=== PATIENT | male | born 1975 | race Caucasian/White ===

== ENCOUNTER 2018-04-08 16:13 | Emergency (ER) | payer OTHER ==
[~2018-04-08] VITALS: Ht 180.3 cm; Wt 77.3 kg
[2018-04-08 16:18] VITALS: BP 147/100
== END 2018-04-08 19:27 | disposition left against medical advice (07) ==
LOC: ER 16:14
DX: R07.9 Chest pain, unspecified (principal); J45.909 Unspecified asthma, uncomplicated; Z53.21 Procedure and treatment not carried out due to patient leaving prior to being seen by health care provider
CPT/HCPCS: 93005; 99281

== ENCOUNTER 2019-06-28 01:30 | Emergency (ER) | payer OTHER ==
[~2019-06-28] VITALS: Ht 177.8 cm; Wt 75.0 kg
[2019-06-28] MEDS ORDERED: dexamethasone sod phosphate 10mg/ml inj IV STA (01:36)
[2019-06-28] MEDS ORDERED: magnesium 2GM in 50ml NS 50 ML IV STA (01:36)
[2019-06-28] MEDS ORDERED: terbutaline 1 mg/ml inj SQ STA (01:36)
[2019-06-28] MEDS ORDERED: normal saline 1000ML IV soln IVB ONE (01:40)
--- NOTE | 2019-06-28 01:55 | NUR ---
RT placed pt on bipap
[2019-06-28 02:06] LABS: BASOPHILS # (AUTO) 0.1 X10'3 (0-0.2); BASOPHILS % (AUTO) 0.8 % (0-1); EOSINOPHILS # (AUTO) 0.9 X10'3 (0-0.9); EOSINOPHILS % (AUTO) 7.6 % (0-6); HEMATOCRIT 45.1 % (42.0-52.0); HEMOGLOBIN 15.4 g/dl (14.0-17.9); LYMPHOCYTES % (AUTO) 25.4 % (21-51); MEAN CORPUSCULAR HEMOGLOBIN 31.6 PG (27.0-31.0); MEAN CORPUSCULAR VOLUME 92.7 FL (78-98); MEAN PLATELET VOLUME 6.4 FL (7.4-10.4); MONOCYTES % (AUTO) 8.7 % (2-12); NEUTROPHILS # (AUTO) 6.9 X10'3 (1.8-7.7); NEUTROPHILS % (AUTO) 57.5 % (42-75); PLATELET COUNT 364 X10'3 (140-440); RED BLOOD COUNT 4.87 X10'6 (4.70-6.10); RED CELL DISTRIBUTION WIDTH 13.2 % (11.5-14.5)
[2019-06-28] MEDS ORDERED: ALBU18HF2 PO (02:06)
[2019-06-28] MEDS ORDERED: FLUT1DIS15 INH (02:06)
[2019-06-28 02:29] LABS: ALANINE AMINOTRANSFERASE 19 U/L (12-78); ALBUMIN 3.4 G/DL (3.4-5.0); ALBUMIN/GLOBULIN RATIO 0.9 (1.1-1.5); ALKALINE PHOSPHATASE 101 IU/L (46-116); ANION GAP 7 (8-16); ASPARTATE AMINO TRANSFERASE 32 U/L (10-37); BILIRUBIN,TOTAL 0.2 MG/DL (0.1-1.0); BLOOD UREA NITROGEN 14 MG/DL (7-18); BUN/CREATININE RATIO 14.7 (5.4-32.0); CALCIUM 8.6 MG/DL (8.5-10.1); CHLORIDE 103 MMOL/L (99-107); CREATININE 0.95 MG/DL (0.60-1.10); GLUCOSE 155 MG/DL (70-104); POTASSIUM 3.6 MMOL/L (3.5-5.1); SODIUM 138 MMOL/L (135-145); TOTAL CARBON DIOXIDE 27.7 MMOL/L (24-32); TOTAL PROTEIN 7.3 G/DL (6.4-8.2); eGFR 86 ML/MIN
[2019-06-28] MEDS ORDERED: albuterol 2.5 MG/3 ML nebule CONTNEB PRN (04:05)
[2019-06-28 04:45] LABS: ABG BASE EXCESS -2.3 mmol/L (-2.0-3.0); ABG HCO3 22.9 mmol/L (22.0-26.0); ABG OXYGEN SATURATION 95.3 % (95-98); ABG PCO2 (T) 40.9 mmHg (35.0-45.0); ABG PH (T) 7.366 (7.350-7.450); ABG PO2 (T) 76.4 mmHg (83-108); ALLEN'S TEST POSITIVE; FCOHb 0.1 % (0.5-1.5); FMetHb 0.2 % (0.3-1.12); TOTAL HEMOGLOBIN 16.1 G/dl (14.0-17.9)
[2019-06-28] MEDS ORDERED: ALBU8HFA PO (05:54)
[2019-06-28] MEDS ORDERED: PRED20TA PO (05:54)
[2019-06-28 06:17] VITALS: BP 143/102
== END 2019-06-28 06:18 | disposition home or self-care (01) ==
LOC: ER 01:31
DX: J45.901 Unspecified asthma with (acute) exacerbation (principal); Z88.6 Allergy status to analgesic agent; Z79.899 Other long term (current) drug therapy
CPT/HCPCS: 36415; 36600; 71045; 80053; 82803; 85018; 85025; 93005; 94640; 94660; 96372; 96374; 96375; 99291; J1100; J3105; J3475; J7030; 94760

== ENCOUNTER 2019-09-19 05:08 | Emergency (ER) | payer MEDICAID ==
[~2019-09-19] VITALS: Ht 177.8 cm; Wt 77.3 kg
[~2019-09-19 05:08] MED LIST: ALBU18HF2 PO; FLUT1DIS15 INH
[2019-09-19] MEDS ORDERED: ipratropium/albuterol 3ml nebule NEB ONE (05:15)
[2019-09-19] MEDS ORDERED: ipratropium 0.5 MG/2.5ML nebule IH ONE (05:20)
[2019-09-19] MEDS ORDERED: magnesium 2GM in 50ml NS 50 ML IV ONE (05:20)
[2019-09-19] MEDS ORDERED: albuterol 2.5 MG/3 ML nebule CONTNEB PRN (05:20)
[2019-09-19] MEDS ORDERED: methylPREDNISolone sod succ 125mg/2ml vial IV ONE (05:20)
[2019-09-19] MEDS ORDERED: PRED20TA PO (05:48)
[2019-09-19 06:34] VITALS: BP 140/96
== END 2019-09-19 07:12 | disposition home or self-care (01) ==
LOC: ER 05:09
DX: J45.909 Unspecified asthma, uncomplicated (principal); Z88.6 Allergy status to analgesic agent; Z79.899 Other long term (current) drug therapy
CPT/HCPCS: 71045; 94640; 94644; 96365; 96375; 99285; J2930; J3475; 94760

== ENCOUNTER 2019-10-24 22:28 | Emergency (ER) | payer MEDICAID ==
[~2019-10-24] VITALS: Ht 177.8 cm; Wt 85.0 kg
[2019-10-24] MEDS ORDERED: normal saline 1000ML IV soln IVB ONE (22:40)
[2019-10-24] MEDS ORDERED: methylPREDNISolone sod succ 125mg/2ml vial IV ONE (22:40)
[2019-10-24] MEDS ORDERED: ipratropium/albuterol 3ml nebule NEB ONE (22:40)
[2019-10-24] MEDS ORDERED: LORazepam 2 mg/ml vial IV ONE (22:50)
[2019-10-24] MEDS ORDERED: albuterol 2.5 MG/3 ML nebule CONTNEB PRN (23:25)
[2019-10-24] MEDS ORDERED: ALB0.5UD IH (23:42)
[2019-10-24] MEDS ORDERED: PRED20TA PO (23:42)
[2019-10-25 00:35] VITALS: BP 140/97
== END 2019-10-25 00:36 | disposition home or self-care (01) ==
LOC: ER 22:28
DX: J45.901 Unspecified asthma with (acute) exacerbation (principal); Z88.6 Allergy status to analgesic agent; Z79.899 Other long term (current) drug therapy
CPT/HCPCS: 93005; 94640; 94644; 96361; 96374; 96375; 99285; J2060; J2930; J7030; 94760

== ENCOUNTER 2019-11-01 06:40 | Emergency (ER) | payer MEDICAID ==
[~2019-11-01] VITALS: Ht 177.8 cm; Wt 80.4 kg
[~2019-11-01 06:40] MED LIST changes: +ALB0.5UD IH
[2019-11-01] MEDS ORDERED: ipratropium/albuterol 3ml nebule NEB ONE (06:50)
[2019-11-01] MEDS ORDERED: dexamethasone 4mg tablet PO ONE (06:50)
[2019-11-01] MEDS ORDERED: terbutaline 1 mg/ml inj SQ STA (07:04)
[2019-11-01] MEDS: magnesium 2GM in 50ml NS 50 ML IV SCH ×2 (07:21→07:59)
--- NOTE | 2019-11-01 07:38 | NUR ---
RECEIVED VO TO RUN IV MAGNESIUM IN OVER THIRTY MINUTES. IV RATE CHANGED APPROPRIATELY
[2019-11-01] MEDS ORDERED: ALBU8HFA PO (07:44)
[2019-11-01] MEDS ORDERED: PRED20TA PO (07:44)
[2019-11-01 09:49] VITALS: BP 126/88
== END 2019-11-01 09:55 | disposition home or self-care (01) ==
LOC: ER 06:40
DX: J45.901 Unspecified asthma with (acute) exacerbation (principal); F12.90 Cannabis use, unspecified, uncomplicated; Z88.6 Allergy status to analgesic agent; Z79.899 Other long term (current) drug therapy
CPT/HCPCS: 93005; 94640; 96365; 96366; 96372; 99285; J3105; J3475; 94760

== ENCOUNTER 2019-11-27 16:58 | Emergency (ER) | payer MEDICAID ==
[~2019-11-27] VITALS: Ht 177.8 cm; Wt 79.5 kg
[~2019-11-27 16:58] MED LIST changes: -ALB0.5UD IH; +ALBU8HFA PO; +PRED20TA PO
[2019-11-27] MEDS ORDERED: methylPREDNISolone sod succ 125mg/2ml vial IV ONE (17:45)
[2019-11-27] MEDS ORDERED: ipratropium/albuterol 3ml nebule NEB ONE (17:45)
[2019-11-27 17:56] LABS: BASOPHILS # (AUTO) 0.2 X10'3 (0-0.2); BASOPHILS % (AUTO) 1.9 % (0-1); EOSINOPHILS # (AUTO) 1.1 X10'3 (0-0.9); EOSINOPHILS % (AUTO) 10.4 % (0-6); HEMATOCRIT 43.5 % (42.0-52.0); HEMOGLOBIN 14.8 g/dl (14.0-17.9); LYMPHOCYTES # (AUTO) 2.3 X10'3 (1.1-4.8); LYMPHOCYTES % (AUTO) 21.3 % (21-51); MEAN CORPUSCULAR HEMOGLOBIN 31.5 PG (27.0-31.0); MEAN CORPUSCULAR HGB CONC 34.1 g/dL (33.0-36.5); MEAN CORPUSCULAR VOLUME 92.4 FL (78-98); MEAN PLATELET VOLUME 6.3 FL (7.4-10.4); MONOCYTES # (AUTO) 0.8 X10'3 (0-0.9); MONOCYTES % (AUTO) 7.7 % (2-12); NEUTROPHILS # (AUTO) 6.3 X10'3 (1.8-7.7); NEUTROPHILS % (AUTO) 58.7 % (42-75); PLATELET COUNT 485 X10'3 (140-440); RED CELL DISTRIBUTION WIDTH 13.1 % (11.5-14.5); WHITE BLOOD COUNT 10.7 X10'3 (4.5-11.0)
[2019-11-27] MEDS ORDERED: normal saline 1000ML IV soln IVB ONE (18:00)
[2019-11-27 18:12] LABS: ALANINE AMINOTRANSFERASE 22 U/L (12-78); ALBUMIN 3.5 G/DL (3.4-5.0); ALBUMIN/GLOBULIN RATIO 0.8 (1.1-1.5); ALKALINE PHOSPHATASE 95 IU/L (46-116); ANION GAP 7 (8-16); ASPARTATE AMINO TRANSFERASE 15 U/L (10-37); BILIRUBIN,TOTAL 0.3 MG/DL (0.1-1.0); BLOOD UREA NITROGEN 10 MG/DL (7-18); BUN/CREATININE RATIO 11.5 (5.4-32.0); CALCIUM 9.1 MG/DL (8.5-10.1); CHLORIDE 104 MMOL/L (99-107); CREATININE 0.87 MG/DL (0.60-1.10); GLUCOSE 92 MG/DL (70-104); POTASSIUM 3.3 MMOL/L (3.5-5.1); SODIUM 138 MMOL/L (135-145); TOTAL CARBON DIOXIDE 26.9 MMOL/L (24-32); TOTAL PROTEIN 7.7 G/DL (6.4-8.2); eGFR > 90 ML/MIN
[2019-11-27] MEDS ORDERED: ipratropium 0.5 MG/2.5ML nebule IH PRN (18:35)
[2019-11-27] MEDS ORDERED: albuterol 2.5 MG/3 ML nebule NEB ONE (18:45)
[2019-11-27] MEDS ORDERED: PRED20TA PO (19:03)
[2019-11-27 19:10] VITALS: BP 130/98
== END 2019-11-27 19:11 | disposition home or self-care (01) ==
LOC: ER 16:59
DX: J45.901 Unspecified asthma with (acute) exacerbation (principal); F12.90 Cannabis use, unspecified, uncomplicated; Z88.6 Allergy status to analgesic agent; Z79.899 Other long term (current) drug therapy
CPT/HCPCS: 36415; 71045; 80053; 85025; 93005; 94640; 96361; 96374; 99285; J2930; J7030; 94760

== ENCOUNTER 2021-09-19 10:40 | Inpatient (IN) | payer MEDICAID ==
[~2021-09-19 10:40] MED LIST changes: -ALBU8HFA PO; +AZIT-103 PO; -PRED20TA PO
[2021-09-19] MEDS ORDERED: albuterol 2.5 MG/3 ML nebule CONTNEB PRN (10:50)
[2021-09-19] MEDS ORDERED: methylPREDNISolone sod succ 125mg/2ml vial IV ONE (10:50)
[2021-09-19] MEDS ORDERED: LORazepam 2 mg/ml vial IV ONE (10:50)
--- NOTE | 2021-09-19 11:00 | NUR ---
Max hubbardjosephine in [facility] - 09/19/21 at 1132 by LORETTA P
--- NOTE | 2021-09-19 11:00 | NUR ---
Pt connected to laboratory monitor and continued on bipap, respiratory paged to give breathing treatment.
[2021-09-19] MEDS ORDERED: magnesium 2GM in 50ml NS 50 ML IV ONE (11:05)
--- NOTE | 2021-09-19 11:05 | NUR ---
Respiratory at bedside administering breathing treatment.
[2021-09-19 11:19] LABS: BASOPHILS % (AUTO) 0.2 % (0-1); EOSINOPHILS # (AUTO) 0.4 X10'3 (0-0.9); HEMATOCRIT 46.3 % (42.0-52.0); HEMOGLOBIN 15.9 g/dl (14.0-17.9); LYMPHOCYTES % (AUTO) 37.7 % (21-51); MEAN CORPUSCULAR HEMOGLOBIN 31.3 PG (27.0-31.0); MEAN CORPUSCULAR HGB CONC 34.4 g/dL (33.0-36.5); MEAN CORPUSCULAR VOLUME 90.9 FL (78-98); MEAN PLATELET VOLUME 6.4 FL (7.4-10.4); MONOCYTES # (AUTO) 0.6 X10'3 (0-0.9); MONOCYTES % (AUTO) 5.6 % (2-12); NEUTROPHILS # (AUTO) 5.6 X10'3 (1.8-7.7); NEUTROPHILS % (AUTO) 52.5 % (42-75); PLATELET COUNT 494 X10'3 (140-440); RED BLOOD COUNT 5.09 X10'6 (4.70-6.10); RED CELL DISTRIBUTION WIDTH 14.3 % (11.5-14.5); WHITE BLOOD COUNT 10.7 X10'3 (4.5-11.0)
[2021-09-19 11:40] LABS: ALANINE AMINOTRANSFERASE 41 U/L (12-78); ALBUMIN 3.5 G/DL (3.4-5.0); ALBUMIN/GLOBULIN RATIO 0.8 (1.1-1.5); ALKALINE PHOSPHATASE 90 IU/L (46-116); ANION GAP 11 (8-16); ASPARTATE AMINO TRANSFERASE 21 U/L (10-37); BILIRUBIN,TOTAL 0.5 MG/DL (0.1-1.0); BLOOD UREA NITROGEN 15 MG/DL (7-18); BUN/CREATININE RATIO 14.7 (5.4-32.0); CALCIUM 9.1 MG/DL (8.5-10.1); CHLORIDE 104 MMOL/L (99-107); CREATININE 1.02 MG/DL (0.60-1.10); GLUCOSE 150 MG/DL (70-104); SODIUM 140 MMOL/L (135-145); TOTAL CARBON DIOXIDE 24.9 MMOL/L (24-32); TOTAL PROTEIN 7.7 G/DL (6.4-8.2); eGFR 79 ML/MIN
[2021-09-19 12:50] LABS: ABG BASE EXCESS -3.1 mmol/L (-2.0-2.0); ABG HCO3 22.3 mmol/L (22.0-26.0); ABG OXYGEN SATURATION 98.8 % (94-97); ABG PCO2 (T) 41.5 mmHg (35.0-48.0); ABG PO2 (T) 167.6 mmHg (75.0-100.0); ALLEN'S TEST Yes; FCOHb 0.3 % (0.0-3.9); FMetHb 0.4 % (0.0-1.5); FO2Hb 98.1 % (94-97); RESPIRATORY RATE 10 b/min; TIDAL VOLUME 980 mL; TOTAL HEMOGLOBIN 17.2 G/dl (14.0-18.0)
--- NOTE | 2021-09-19 12:58 | NUR ---
Pt resting in less distress at this time, continues to be on BIPAP. Pt's at bedside.
[2021-09-19] MEDS ORDERED: POTASSIUM BICARB 20meq eff tab 20 MEQ TABLET.EFF PO PRN ×2 (13:45)
[2021-09-19] MEDS ORDERED: magnesium 4gm in 100ml NS 100 ML IV PRN (13:45)
[2021-09-19] MEDS ORDERED: acetaminophen 325mg tablet PO PRN ×2 (13:45)
[2021-09-19] MEDS ORDERED: CefTRIAXone 2gm/D5W 50ml BAG 50 ML IV SCH (13:45)
[2021-09-19] MEDS ORDERED: LORazepam 1 MG tablet PO PRN (13:45)
[2021-09-19] MEDS ORDERED: LORazepam 2 mg/ml vial IV PRN (13:45)
[2021-09-19] MEDS ORDERED: potassium CL 10mEq/100ml bag 100 ML IV PRN (13:45)
[2021-09-19] MEDS ORDERED: magnesium 2GM in 50ml NS 50 ML IV PRN (13:45)
[2021-09-19] MEDS ORDERED: HYDROcodone/acetaminophen 5mg/325mg tablet PO PRN (13:45)
[2021-09-19] MEDS ORDERED: morphine 2 MG/ML inj. syringe IV PRN (13:45)
[2021-09-19] MEDS ORDERED: magnesium Cl slow-release 64mg tablet PO PRN (13:45)
[2021-09-19] MEDS ORDERED: ondansetron/PF 4mg/2ml inj IV PRN (13:45)
[2021-09-19] MEDS ORDERED: NYST1000 PO (14:43)
[2021-09-19] MEDS ORDERED: PRE5T PO (14:43)
[2021-09-19] MEDS ORDERED: IPRA3AMP31 (14:43)
[2021-09-19] MEDS ORDERED: EPIN0.3A3 SUBCUT (14:46)
--- NOTE | 2021-09-19 15:31 | NUR ---
Pt reports feeling better, resting without distress, continues to be monitored.
[2021-09-19] MEDS ORDERED: EPINEPHRINE SUBCUT PRN (15:50)
[2021-09-19] MEDS: albuterol 2.5 MG/3 ML nebule NEB SCH ×2 (16:42→19:02)
--- NOTE | 2021-09-19 17:19 | NUR ---
Resting quietly after breathing tx, pt awaiting bed for admission.
--- NOTE | 2021-09-19 18:25 | NUR ---
Report given to Nuvia.
--- NOTE | 2021-09-19 18:34 | NUR ---
First encounter with pt that is here today for asthma exacerbation. Pt is alert in the cart on cafeteria monitor with family at the bedside. PT is eating and has no needs at this time
[2021-09-19 18:36] VITALS: BP 111/82
[2021-09-19] MEDS ORDERED: heparin, porcine 5000 units/ml vial SQ SCH (20:00)
[2021-09-19] MEDS ORDERED: pantoprazole 40mg Tablet.DR PO SCH (20:00)
[2021-09-19] MEDS ORDERED: K and/or MAG REPLACEMENT MC SCH (20:00)
[2021-09-19] MEDS ORDERED: methylPREDNISolone sod succ 125mg/2ml vial IV SCH (20:00)
--- NOTE | 2021-09-19 20:20 | NUR ---
Pt is requesting to leave and does not want to stay for treatment
[2021-09-19] MEDS ORDERED: temazepam 15mg capsule PO PRN (21:00)
== END 2021-09-20 10:24 | disposition left against medical advice (07) | DRG 141 ==
LOC: ER 10:40 → ED HOLD 13:53
PROVIDERS: ADMIT Internal Medicine; ATTEND Internal Medicine
PROC: 5A09357 Assistance with Respiratory Ventilation, Less than 24 Consecutive Hours, Continuous Positive Airway Pressure (ICD-10-PCS; principal; 2021-09-19)
DX: J45.901 Unspecified asthma with (acute) exacerbation (principal); J96.91 Respiratory failure, unspecified with hypoxia; F12.90 Cannabis use, unspecified, uncomplicated; K21.9 Gastro-esophageal reflux disease without esophagitis; R21 Rash and other nonspecific skin eruption; S99.911A Unspecified injury of right ankle, initial encounter; Z53.29 Procedure and treatment not carried out because of patient's decision for other reasons; S99.912A Unspecified injury of left ankle, initial encounter; X50.1XXA Overexertion from prolonged static or awkward postures, initial encounter; Y92.89 Other specified places as the place of occurrence of the external cause; Z88.8 Allergy status to other drugs, medicaments and biological substances; Z72.89 Other problems related to lifestyle
CPT/HCPCS: 36415; 36600; 71045; 73600; 80053; 82803; 83605; 84145; 84484; 85018; 85025; 87040; 94640; 94660; 94760; 96365; 96366; 96375; 99291; 99292; A7015; G0378; J0696; J2060; J2930; J3475

== ENCOUNTER 2024-03-23 18:29 | Emergency (ER) | payer BC, MEDICAID ==
[~2024-03-23] VITALS: Ht 177.8 cm; Wt 79.5 kg
[~2024-03-23 18:29] MED LIST changes: -AZIT-103 PO; +EPIN0.3A3 SUBCUT; -FLUT1DIS15 INH; +IPRA3AMP31; +NYST100069 PO; +PRE5T PO
[2024-03-23 18:34] VITALS: TEMP 97
[2024-03-23 18:51] LABS: BASOPHILS # (AUTO) 0.1 X10'3 (0-0.2); BASOPHILS % (AUTO) 0.7 % (0-1); EOSINOPHILS # (AUTO) 0.4 X10'3 (0-0.9); EOSINOPHILS % (AUTO) 3.2 % (0-6); HEMATOCRIT 36.2 % (42.0-52.0); HEMOGLOBIN 12.3 g/dl (14.0-17.9); LYMPHOCYTES # (AUTO) 2.9 X10'3 (1.1-4.8); LYMPHOCYTES % (AUTO) 22.2 % (21-51); MEAN CORPUSCULAR HEMOGLOBIN 29.7 PG (27.0-31.0); MEAN CORPUSCULAR HGB CONC 33.9 g/dL (33.0-36.5); MEAN CORPUSCULAR VOLUME 87.5 FL (78-98); MEAN PLATELET VOLUME 5.5 FL (7.4-10.4); MONOCYTES # (AUTO) 1.7 X10'3 (0-0.9); NEUTROPHILS # (AUTO) 7.9 X10'3 (1.8-7.7); NEUTROPHILS % (AUTO) 60.9 % (42-75); PLATELET COUNT 524 X10'3 (140-440); RED BLOOD COUNT 4.13 X10'6 (4.70-6.10); RED CELL DISTRIBUTION WIDTH 14.4 % (11.5-14.5)
[2024-03-23 19:15] LABS: ALANINE AMINOTRANSFERASE 18 U/L (12-78); ALBUMIN/GLOBULIN RATIO 0.5 (1.1-1.5); ALKALINE PHOSPHATASE 121 IU/L (46-116); ANION GAP 7 (8-16); ASPARTATE AMINO TRANSFERASE 14 U/L (10-37); BILIRUBIN,TOTAL 0.8 MG/DL (0.1-1.0); BLOOD UREA NITROGEN 10 MG/DL (7-18); BUN/CREATININE RATIO 10.5 (10.0-20.0); CALCIUM 8.7 MG/DL (8.5-10.1); CHLORIDE 99 MMOL/L (99-107); CREATININE 0.95 MG/DL (0.60-1.10); GLUCOSE 137 MG/DL (70-104); POTASSIUM 3.4 MMOL/L (3.5-5.1); SODIUM 133 MMOL/L (135-145); TOTAL CARBON DIOXIDE 26.9 MMOL/L (24-32); TOTAL PROTEIN 9.1 G/DL (6.4-8.2); eCRCL 98 ML/MIN; eGFR 85 ML/MIN
[2024-03-23 19:18] LABS: PRO BRAIN NATRIURETIC PEPTIDE < 30 PG/ML (0-125)
[2024-03-23] MEDS: ipratropium/albuterol 3ml nebule NEB ONE (19:20)
[2024-03-23 19:21] VITALS: PULSE 110; RESP 18; O2SAT 98
[2024-03-23 19:28] VITALS: PULSE 111; RESP 18; O2SAT 98
[2024-03-23] MEDS ORDERED: PRED20TA PO (20:48)
[2024-03-23] MEDS: predniSONE 20 mg tablet PO ONE (20:49)
[2024-03-23] MEDS: azithromycin 250mg tablet PO ONE (20:50)
[2024-03-23] MEDS ORDERED: AZIT-164 PO (20:50)
[2024-03-23] MEDS: ipratropium/albuterol 3ml nebule NEB PRN (21:04)
[2024-03-23 21:06] VITALS: PULSE 110; RESP 18; O2SAT 96
[2024-03-23 21:14] VITALS: PULSE 104; RESP 18; O2SAT 98
[2024-03-23 21:15] VITALS: BP 114/89; PULSE 100; RESP 20; O2SAT 98
== END 2024-03-23 21:19 | disposition home or self-care (01) ==
LOC: ER 18:29
DX: J45.901 Unspecified asthma with (acute) exacerbation (principal); J18.9 Pneumonia, unspecified organism; R07.81 Pleurodynia; F12.90 Cannabis use, unspecified, uncomplicated; Z20.822 Contact with and (suspected) exposure to COVID-19; Z88.8 Allergy status to other drugs, medicaments and biological substances; Z79.82 Long term (current) use of aspirin
CPT/HCPCS: 36415; 71045; 80053; 83880; 84484; 85025; 87502; 87503; 87811; 93005; 94640; 99285; J7512